=== PATIENT | male | born 1995 | race Caucasian/White ===

== ENCOUNTER 2018-09-10 00:46 | Emergency (ER) | payer OTHER ==
[~2018-09-10] VITALS: Ht 188 cm; Wt 83.9 kg
[2018-09-10] MEDS ORDERED: IBUPROFEN 400 MG TAB PO ONE (01:00)
[2018-09-10] MEDS ORDERED: IBUPROFEN 200 MG TAB ONE (01:02)
[2018-09-10] MEDS ORDERED: IBUPROFEN 600 MG TAB ONE (01:02)
[2018-09-10 01:42] LABS: INFLUENZAE A&B ANTIGEN (RAPID) NEGATIVE (NEGATIVE); STREPTOCOCCUS GRP A ANTIGEN NEGATIVE (NEGATIVE)
[2018-09-10] MEDS ORDERED: SODIUM CHLORIDE 0.9% 1000ML 1,000 ML IV STA (01:44)
[2018-09-10] MEDS ORDERED: KETOROLAC TROMETHAMINE 30 MG/ML VIAL IV STA (01:44)
[2018-09-10] MEDS ORDERED: METOCLOPRAMIDE HCL 10 MG/2ML VIAL IV ONE (01:45)
[2018-09-10] MEDS ORDERED: DIPHENHYDRAMINE HCL INJ 50 MG/ML VIAL IV ONE (01:45)
== END 2018-09-10 02:35 | disposition home or self-care (01) ==
LOC: ER 00:46
DX: R50.9 Fever, unspecified (principal); R11.2 Nausea with vomiting, unspecified; B34.9 Viral infection, unspecified
CPT/HCPCS: 83518; 87070; 87400; 99283; J1200; J1885; J2765; J7030